=== PATIENT | male | born 1965 | race Caucasian/White ===

== ENCOUNTER 2025-01-20 11:21 | Day surgery (SDC) | payer OTHER ==
[2025-01-18 15:09] LABS: Absolute Basophils 0.1 K/uL (0-0.5); Absolute Eosinophils 0.2 K/uL (0-0.5); Absolute Lymphocytes (CBC) 1.6 K/uL (0.7-4.9); Absolute Monocytes 0.6 K/uL (0.1-1.3); Basophils % 0.9 % (0-1.3); Eosinophils % 4.5 % (0-4.4); Hematocrit 36.4 % (39.6-49.0); Hemoglobin 12.8 g/dL (13.6-17.9); Lymphocytes % 29.7 % (15.3-44.8); MCH 31.3 pg (27.0-35.0); MCHC 35.1 g/dL (32.0-36.0); MCV 89.1 fL (80-100); MPV 8.1 fL (7.6-11.3); Monocytes % 10.4 % (3.3-12.3); Neutrophils % 54.5 % (41.7-73.7); Nucleated Red Blood Cells % 0.1 % (0-0); Platelets 251 thou/uL (152-406); RBC Red Blood Cell Count 4.08 M/uL (4.33-5.43); Red Cell Distribution Width 13.9 % (12.1-15.2)
[2025-01-18 15:26] LABS: Anion Gap 10.5 mEq/L (5.0-15.0); Potassium 3.5 mEq/L (3.5-5.1)
--- NOTE | 2025-01-19 12:20 | EKG ---
Test Date: 2025-01-18 Test Time: 15:01:42 House Registry Rn: JANENE MEASUREMENT RESULTS: Intervals: Rate: 83 MA: 138 QRSD: 152 QT: 416 QTc: 488 [place]: P: 74 MA: 138 QRS: -17 T: 53 INTERPRETIVE STATEMENTS: Sinus rhythm with premature atrial complexes Right bundle branch block Abnormal ECG No previous ECG available for comparison Electronically Signed On 01-19-25 12:19:06 CDT by Antelmo Valdez
[2025-01-20] MEDS ORDERED: ROCURONIUM 50 MG/5 ML VIAL IV ONE (11:28)
[2025-01-20] MEDS ORDERED: ONDANSETRON 4 MG/2 ML VIAL ONE (11:28)
[2025-01-20] MEDS ORDERED: MIDAZOLAM HCL 2 MG/2 ML INJ ONE ×2 (11:28→11:30)
[2025-01-20] MEDS ORDERED: FENTANYL CITR 100 MCG/2 ML ONE (11:28)
[2025-01-20] MEDS ORDERED: propofoL 200 MG/20 ML VIAL IV ONE (11:28)
[2025-01-20] MEDS ORDERED: LIDOCAINE 2% MPF 5 ML VIAL ONE (11:28)
[2025-01-20] MEDS ORDERED: SUGAMMADEX SODIUM 200 MG/2 ML VIAL IV ONE (11:32)
[2025-01-20] MEDS ORDERED: HYDROMORPHONE HCL 1 MG/ML INJ ONE (11:32)
[2025-01-20] MEDS: Ringers Lactate 1,000 ML IV ONE ×2 (12:01→13:23)
[2025-01-20] MEDS: CEFAZOLIN SODIUM 2 GM/VIAL ONE (12:05)
[2025-01-20] MEDS: LIDOCAINE HCL/EPINEPHRINE 20 ML MDV ONE (12:05)
[2025-01-20] MEDS ORDERED: dexAMETHasone 10 MG/ML VIAL ONE (12:29)
[2025-01-20] MEDS ORDERED: EPHEDRINE SULF 50 MG/ML VIAL ONE (13:05)
--- NOTE | 2025-01-20 13:58 | P.OP ---
Preoperative diagnosis: RIGHT Inguinal Hernia Postoperative diagnosis: RIGHT Inguinal Hernia Primary procedure: Open RIGHT Inguinal Hernia Repair with mesh Anesthesia: GETA + Local Estimated blood loss: <5cc Specimen: Hernia Sack, Cord Lipoma Findings: Large inguinal hernia Complications: None Implants: Bard Perfix Large Plug and Patch Hernia Mesh Transferred to: Recovery Room Condition: Good
[2025-01-20] MEDS: HYDROMORPHONE HCL 0.5 MG/0.5 ML INJ ONE (14:40)
[2025-01-20 14:47] VITALS: O2SAT 100
[2025-01-20] MEDS: HYDROCODONE/APAP 10/325 TAB ONE (15:09)
[2025-01-20 15:29] VITALS: BP 139/84; TEMP 97.5
--- NOTE | 2025-01-20 16:54 | OP ---
Date of Procedure: 01/20/2025 Surgeon: Hari Ramos MD, Preoperative Diagnosis: Right inguinal hernia. Postoperative Diagnosis: Right inguinal hernia Procedure Performed: Right inguinal hernia repair with mesh. Anesthesia: General endotracheal plus local 1% lidocaine with epinephrine. Estimated Blood Loss: 5 cc. Specimen: Hernia sac and cord lipoma. Findings: Large inguinal hernia noted on the right. Complications: None. Implants: Bard PerFix large plug and patch repair mesh system. The patient sent to recovery room in good condition. Procedure In Detail: After informed consent was obtained, patient was brought to the operating room, prepped and draped in the usual sterile fashion. After adequate anesthesia achieved, I made a linea r incision above the right inguinal crease at the subcutaneous tissues at this point and dissected do wn through Camper's fat and Arnulfo's fascia to expose thin alveolar damage to the external oblique ap oneurosis. At this point, it was opened sharply using a 15 blade. Ultimately, it was opened in its proximal and distal ends using Metzenbaum scissors. I then encircled the spermatic cord structures u sing a Felix drain. There was significant adhesions between the spermatic cord structures and the hernia sac, which is moving through the canal all the way down into the scrotal sac and attached firm ly to the dartos tissue and I this using meticulous dissection ultimately dissecting the sp ermatic cord structures off the hernia sac as well. The hernia sac was quite large. I returned all the abdominal contents back to the preperitoneal space. I placed a clamp on the end of this hernia s ac and ligated using a combination of 2-0 Vicryl suture with a single free tie. I then ligated the h ernia sac and sent for pathologic examination. I returned the hernia sac to the preperitoneal space. The cord lipoma was removed and the spermatic cord structures at this point and then I then sized a large Bard PerFix plug and placed in the preperitoneal space at this point and to the floor using bl unt dissection circumferentially around. I then secured it circumferentially around using 2-0 PDS posadas tures in an interrupted fashion to the shelving edge circumferentially around this area. We then telescope repairer iously irrigated and each hernia patch was brought in, sized appropriately, and secured to the pubic tubercle medial aspect of the internal oblique aponeurosis and the undersurface of the ligament using interrupted 2-0 PDS sutures and reconstituted the deep inguinal ring using the same 2-0 PDS suture. At this point, the mesh was trimmed once again and I irrigated the area, closed the external oblique aponeurosis using a 3-0 Vicryl in a running fashion and then closed the deep dermal plane using same said 3-0 Vicryl suture and skin closed with 4-0 Monocryl in a running fashion. Dermabond was placed over top. The patient tolerated the procedure without incident or complication, transferred to PACU in good condition. All counts were correct at the end of the case. ERIC/ROJAS Voice ID: [id number] Report ID: [id number]
[2025-01-20] MEDS: TAMSULOSIN 0.4 MG SR CAP ONE (18:01)
[2025-01-20] MEDS ORDERED: LIDOCAINE JELLY 2% 5 ML SYRINGE TOP ONE (18:57)
[2025-01-20] MEDS: TRAMADOL HCL 50 MG TAB ONE (19:22)
== END 2025-01-20 19:30 | disposition home or self-care (01) ==
LOC: OR 11:21
PROVIDERS: ATTEND Surgery
PROC: 0YU50JZ Supplement Right Inguinal Region with Synthetic Substitute, Open Approach (ICD-10-PCS; principal; 2025-01-20 12:45)
DX: K40.90 Unilateral inguinal hernia, without obstruction or gangrene, not specified as recurrent (principal)
CPT/HCPCS: 93005; 85025; 80048; 36415; 88302; 88304; 49650; J2704; J2003; J2250; J3010; J1100; J1171 ×2; J2405; J7120 ×2